=== PATIENT | male | born 1985 | race Caucasian/White ===

== ENCOUNTER 2017-01-13 08:37 | Inpatient (IN) | payer MEDICAID, OTHER ==
[~2017-01-13] VITALS: Ht 180.3 cm; Wt 101.5 kg
[~2017-01-13 08:37] MED LIST: Z.0.NO CURRENT MEDS
[2017-01-13 08:43] VITALS: BP 143/98; PULSE 51; RESP 24; TEMP 97.5; O2SAT 100
[2017-01-13] MEDS ORDERED: ceFAZolin 2 GM PREMIX 50 ML IV ONE (09:00)
[2017-01-13] MEDS ORDERED: HYDROmorphone HCL PF 1 MG/ML VIAL IV PUSH ONE ×2 (09:00→10:15)
[2017-01-13 09:14] LABS: AUTOMATED NEUTROPHIL # 8.8 TH/MM3 (1.8-7.7); BASOPHIL # 0.1 TH/MM3 (0-0.2); BASOPHIL % 0.9 % (0.0-2.0); EOSINOPHIL # 0.1 TH/MM3 (0-0.4); EOSINOPHIL % 0.9 % (0.0-4.0); HEMATOCRIT 41.7 % (39.0-51.0); HEMO FLAGS DIFF FINAL; LYMPH % 24.3 % (9.0-44.0); LYMPHOCYTE # 3.1 TH/MM3 (1.0-4.8); MEAN CELL VOLUME 88.1 FL (80.0-100.0); MEAN CORPUSCULAR HEMOGLOBIN 29.8 PG (27.0-34.0); MEAN CORPUSCULAR HGB CONC 33.8 % (32.0-36.0); MONO % 5.6 % (0.0-8.0); NEUT % 68.3 % (16.0-70.0); PLATELET COUNT 247 TH/MM3 (150-450); RED BLOOD COUNT 4.74 MIL/MM3 (4.50-5.90); RED CELL DISTRIBUTION WIDTH 12.8 % (11.6-17.2); WHITE BLOOD COUNT 12.9 TH/MM3 (4.0-11.0)
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
[2017-01-13 09:24] LABS: PROTHROMBIN TIME - PATIENT 11.3 SEC (9.8-11.6)
[2017-01-13 09:26] LABS: APTT (PATIENT) 22.8 SEC (24.3-30.1)
[2017-01-13] MEDS ORDERED: HYDROmorphone HCL PF 2 MG/ML VIAL IV PUSH ONE (09:30)
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
[2017-01-13 10:39] LABS: ALT (GPT) 25 U/L (12-78); ANION GAP 9 MEQ/L (5-15); AST (GOT) 15 U/L (15-37); BICARBONATE 23.2 MEQ/L (21.0-32.0); BLOOD UREA NITROGEN 18 MG/DL (7-18); CHLORIDE 110 MEQ/L (98-107); GLOMERULAR FILTRATION RATE 94 ML/MIN (>89); SODIUM (NA) 142 MEQ/L (136-145)
[2017-01-13 10:42] LABS: ALKALINE PHOSPHATASE 104 U/L (45-117); TOTAL BILIRUBIN ADULT 0.5 MG/DL (0.2-1.0)
[2017-01-13 10:44] LABS: POTASSIUM 3.9 MEQ/L (3.5-5.1)
[2017-01-13] MEDS ORDERED: IOHEXOL 350 MG/ML 10 ML VIAL (for RAD DIAG) IV ONE (11:26)
[2017-01-13] MEDS ORDERED: ceFAZolin INJ 1,000 MG VIAL IV ONE (11:45)
[2017-01-13] MEDS ORDERED: GENTAMICIN SULFATE 80 MG/2 ML VIAL IV ONE (11:45)
[2017-01-13] MEDS ORDERED: GENTAMICIN SULFATE 80 MG/2 ML VIAL IRRIGATION ONE (11:57)
[2017-01-13] MEDS ORDERED: ONDANSETRON HCL 4 MG/2 ML VIAL IV PUSH ONE (12:00)
[2017-01-13] MEDS ORDERED: PROPOFOL 200 MG/20 ML AMP IV ONE (12:00)
[2017-01-13] MEDS ORDERED: NEOSTIGMINE 3 MG/3 ML SYR IV ONE (12:00)
[2017-01-13] MEDS ORDERED: NORMOSOL R INJ 1,000 ML IV ONE (12:00)
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
[2017-01-13] MEDS ORDERED: SODIUM CHLORIDE 0.9% FLUSH 5 ML FLUSH IVF PRN (12:30)
[2017-01-13] MEDS ORDERED: ONDANSETRON HCL 4 MG/2 ML VIAL IVP PRN (12:30)
[2017-01-13] MEDS ORDERED: diphenhydrAMINE HCL 25 MG CAP PO PRN (12:30)
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
[2017-01-13] MEDS ORDERED: NALOXONE HCL 0.4 MG/ML AMP IV PRN (13:00)
[2017-01-13] MEDS ORDERED: SODIUM CHLORIDE 0.9% FLUSH 5 ML FLUSH FLUSH PRN (13:00)
[2017-01-13] MEDS ORDERED: DO NOT ADM ANY ANTICOAGULANT DRUGS XX PRN (13:01)
[2017-01-13] MEDS ORDERED: Post-op Orders (for Pharmacy) MISC XX ONE (13:01)
[2017-01-13] MEDS ORDERED: *MEPERIDINE 25 MG INJ VIAL PERIprocedural Use ONLY ONE ×2 (13:02→13:08)
[2017-01-13] MEDS ORDERED: *HYDROmorphone PF 1 MG VIAL PERIprocedural Use ONLY ONE ×4 (13:08→13:47)
[2017-01-13] MEDS ORDERED: MIDAZOLAM HCL 2 MG/2 ML VIAL ONE (13:13)
[2017-01-13] MEDS ORDERED: fentaNYL CITRATE 250 MCG/5 ML AMP ONE (13:13)
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
[2017-01-13] MEDS: KETOROLAC TROMETHAMINE 30 MG/ML (IVP) VIAL IVP SCH ×2 (13:21→21:13)
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
[2017-01-13] MEDS: LACTATED RINGER'S 1000 ML INJ 1,000 ML IV SCH (13:30)
[2017-01-13] MEDS ORDERED: *ENALAPRILAT 1.25 MG/ML VIAL PERIprocedural Use ONLY ONE (13:35)
[2017-01-13] MEDS: ACETAMINOPHEN/HYDROcodone 325 MG/10 MG TAB PO PRN ×2 (16:29→19:46)
[2017-01-13] MEDS: ceFAZolin 2 GM PREMIX 50 ML IV SCH (17:04)
[2017-01-13] MEDS: MORPHINE SULFATE 4 MG/ML INJ IV PUSH PRN ×2 (17:24→21:12)
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
[2017-01-13] MEDS ORDERED: DOCUSATE SODIUM 50 MG/SENNA 8.6 MG TAB PO PRN (18:30)
[2017-01-13] MEDS: GENTAMICIN 80 MG PREMIX 100 ML IV SCH (19:46)
[2017-01-13] MEDS: DOCUSATE SODIUM 50 MG/SENNA 8.6 MG TAB PO SCH (19:47)
[2017-01-13 20:00] VITALS: BP 129/70; PULSE 62; RESP 16; TEMP 98.4; O2SAT 100
[2017-01-13] MEDS: SODIUM CHLORIDE 0.9% FLUSH 5 ML FLUSH IVF SCH (21:00)
[2017-01-13] MEDS: SODIUM CHLORIDE 0.9% FLUSH 5 ML FLUSH FLUSH SCH (21:13)
[2017-01-14] VITALS (8 sets, daily range): BP systolic 121–151; BP diastolic 63–79; PULSE 53–88; RESP 16–18; TEMP 97.8–99.1; O2SAT 96–100
[2017-01-14] MEDS: ceFAZolin 2 GM PREMIX 50 ML IV SCH ×4 (01:37→23:53)
[2017-01-14] MEDS: ACETAMINOPHEN/HYDROcodone 325 MG/10 MG TAB PO PRN ×7 (01:37→23:53)
[2017-01-14] MEDS: LACTATED RINGER'S 1000 ML INJ 1,000 ML IV SCH ×2 (01:38→13:21)
[2017-01-14] MEDS: MORPHINE SULFATE 4 MG/ML INJ IV PUSH PRN ×6 (03:18→22:20)
[2017-01-14] MEDS: GENTAMICIN 80 MG PREMIX 100 ML IV SCH ×3 (03:19→20:43)
[2017-01-14 05:15] LABS: HEMATOCRIT 34.9 % (39.0-51.0); REVIEW FLAG FINAL
[2017-01-14] MEDS: KETOROLAC TROMETHAMINE 30 MG/ML (IVP) VIAL IVP SCH ×2 (05:24→13:21)
[2017-01-14] MEDS ORDERED: HYDR-3366 PO (07:02)
[2017-01-14] MEDS ORDERED: WALKER/ADULT/FO1 MIS (07:02)
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
[2017-01-14] MEDS: SODIUM CHLORIDE 0.9% FLUSH 5 ML FLUSH IVF SCH ×2 (09:00→20:44)
[2017-01-14] MEDS: DOCUSATE SODIUM 50 MG/SENNA 8.6 MG TAB PO SCH ×2 (09:07→20:44)
[2017-01-14] MEDS: POLYETHYLENE GLYCOL 17 GM PKG PO SCH (09:08)
[2017-01-14] MEDS: SODIUM CHLORIDE 0.9% FLUSH 5 ML FLUSH FLUSH SCH ×2 (09:08→20:44)
[2017-01-14] MEDS: ENOXAPARIN SODIUM 30 MG/0.3 ML SYRINGE SQ SCH ×3 (12:00→22:30)
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
[2017-01-15] MEDS: MORPHINE SULFATE 4 MG/ML INJ IV PUSH PRN ×3 (01:52→07:50)
[2017-01-15] MEDS: ACETAMINOPHEN/HYDROcodone 325 MG/10 MG TAB PO PRN (03:46)
[2017-01-15] MEDS: GENTAMICIN 80 MG PREMIX 100 ML IV SCH (03:48)
[2017-01-15 04:00] VITALS: BP 150/84; PULSE 67; RESP 16; TEMP 98.4; O2SAT 100
[2017-01-15] MEDS ORDERED: ACETAMINOPHEN/HYDROcodone 325 MG/10 MG TAB PO ONE (04:15)
[2017-01-15 07:52] LABS: BICARBONATE 27.1 MEQ/L (21.0-32.0)
[2017-01-15 08:00] VITALS: BP 121/77; PULSE 56; RESP 18; TEMP 97.6; O2SAT 100
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
[2017-01-15] MEDS: SODIUM CHLORIDE 0.9% FLUSH 5 ML FLUSH IVF SCH (09:00)
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
[2017-01-15] MEDS: DOCUSATE SODIUM 50 MG/SENNA 8.6 MG TAB PO SCH (10:26)
[2017-01-15] MEDS: ceFAZolin 2 GM PREMIX 50 ML IV SCH (10:27)
[2017-01-15] MEDS: SODIUM CHLORIDE 0.9% FLUSH 5 ML FLUSH FLUSH SCH (10:28)
[2017-01-15] MEDS: POLYETHYLENE GLYCOL 17 GM PKG PO SCH (10:28)
[2017-01-15] MEDS ORDERED: ACETAMINOPHEN/HYDROcodone 325 MG/10 MG TAB PO PRN (13:30)
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
[2017-03-15] MEDS ORDERED: HYDR-3288 PO (07:46)
[2017-03-15] MEDS ORDERED: CRUTMIS25 (08:38)
== END 2017-01-15 13:04 | disposition left against medical advice (07) | DRG 494 ==
LOC: NEPE 08:37 → NEDA 11:00 → N06B 14:24
PROVIDERS: ADMIT Hospitalist; ATTEND Hospitalist
PROC: 0QSH04Z Reposition Left Tibia with Internal Fixation Device, Open Approach (ICD-10-PCS; 2017-01-13)
PROC: 0S9G0ZZ Drainage of Left Ankle Joint, Open Approach (ICD-10-PCS; principal; 2017-01-13 11:37)
DX: S82.872B Displaced pilon fracture of left tibia, initial encounter for open fracture type I or II (principal); I10 Essential (primary) hypertension; X95.9XXA Assault by unspecified firearm discharge, initial encounter; Y93.89 Activity, other specified; Y92.89 Other specified places as the place of occurrence of the external cause; F17.210 Nicotine dependence, cigarettes, uncomplicated; F90.9 Attention-deficit hyperactivity disorder, unspecified type; G89.29 Other chronic pain; M54.9 Dorsalgia, unspecified
CPT/HCPCS: 73590; 73600; 73610; 73630; 73700; 75635; 76000; 80048; 80053; 85014; 85018; 85025; 85610; 85730; 86850; 86900; 86901; 94150; 96365; 96374; 96375; C1713; E0113; J0690; J1170; J1580; J1650; J1885; J2175; J2250; J2270; J2405; J2710; J3010; J7120; Q9967

== ENCOUNTER 2017-01-28 18:06 | Emergency (ER) | payer MEDICAID ==
[~2017-01-28] VITALS: Ht 180.3 cm; Wt 100.0 kg
[~2017-01-28 18:06] MED LIST changes: +HYDR-3366 PO; +WALKER/ADULT/FO1 MIS; -Z.0.NO CURRENT MEDS
[2017-01-28 18:08] VITALS: BP 159/92; PULSE 96; RESP 24; TEMP 97; O2SAT 98
[2017-01-28] MEDS ORDERED: KETOROLAC TROMETHAMINE 30 MG/ML (IVP) VIAL IV PUSH ONE (22:30)
[2017-01-28] MEDS ORDERED: KETOROLAC TROMETHAMINE 60 MG/2 ML (IM) VIAL IM ONE (22:30)
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
[2017-01-28 22:57] LABS: AUTOMATED NEUTROPHIL # 4.1 TH/MM3 (1.8-7.7); BASOPHIL # 0.1 TH/MM3 (0-0.2); BASOPHIL % 1.3 % (0.0-2.0); EOSINOPHIL # 0.2 TH/MM3 (0-0.4); EOSINOPHIL % 3.1 % (0.0-4.0); HEMATOCRIT 30.5 % (39.0-51.0); HEMO FLAGS DIFF FINAL; LYMPH % 35.1 % (9.0-44.0); LYMPHOCYTE # 2.7 TH/MM3 (1.0-4.8); MEAN CELL VOLUME 87.2 FL (80.0-100.0); MEAN CORPUSCULAR HEMOGLOBIN 30.7 PG (27.0-34.0); MEAN CORPUSCULAR HGB CONC 35.2 % (32.0-36.0); MONO % 6.7 % (0.0-8.0); NEUT % 53.8 % (16.0-70.0); PLATELET COUNT 312 TH/MM3 (150-450); RED CELL DISTRIBUTION WIDTH 13.6 % (11.6-17.2); WHITE BLOOD COUNT 7.7 TH/MM3 (4.0-11.0)
[2017-01-28 23:10] LABS: BICARBONATE 27.6 MEQ/L (21.0-32.0); POTASSIUM 4.1 MEQ/L (3.5-5.1)
[2017-01-28] MEDS ORDERED: oxyCODONE/ACETAMINOPHEN 5 MG/325 MG TAB PO ONE (23:30)
[2017-01-29] MEDS ORDERED: IBUP-232 PO (01:39)
[2017-03-15] MEDS ORDERED: HYDR-3288 PO (07:46)
[2017-03-15] MEDS ORDERED: CRUTMIS25 (08:38)
== END 2017-01-29 02:01 | disposition home or self-care (01) ==
LOC: NEPE 18:06
DX: S82.872D Displaced pilon fracture of left tibia, subsequent encounter for closed fracture with routine healing (principal); Z48.01 Encounter for change or removal of surgical wound dressing; S82.2 Fracture of shaft of tibia; X58.XXXD Exposure to other specified factors, subsequent encounter; I10 Essential (primary) hypertension; F17.210 Nicotine dependence, cigarettes, uncomplicated
CPT/HCPCS: 80048; 85025; 96372; 99283; J1885

== ENCOUNTER → 2017-03-15 | Day surgery (SDC) | payer SELFPAY ==
[~2017-03-15] VITALS: Ht 180.3 cm; Wt 95.5 kg
[~2017-03-15] MED LIST changes: +*morphine SULFATE 8 MG/ML PERIprocedure ONLY ONE; +ACETAMINOPHEN 1000 MG/100 ML VIAL IV ONE; +ACETAMINOPHEN/HYDROcodone 325 MG/7.5 MG TAB PO PRN; +CHLORHEXIDINE GLUCONATE 2 % 1 PACK (2 CLOTHS) TOPICAL PRN; +CHLORHEXIDINE GLUCONATE 4% SOLN 120 ML BTL TOPICAL SCH; +CRUTMIS25; +DEXAMETHASONE SOD PHOS 4 MG/ML VIAL ONE; +FAMOTIDINE 20 MG/2 ML VIAL ONE; +HYDR-3288 PO; -HYDR-3366 PO; +IBUP-232 PO; +INSULIN HUMAN REGULAR 1,000 UNITS/10 ML VIAL SQ PRN; +LACTATED RINGER'S 1000 ML IV PRN; +METOPROLOL TARTRATE 25 MG TAB PO PRN; +MIDAZOLAM HCL 2 MG/2 ML VIAL ONE; +MORPHINE SULFATE 4 MG/ML INJ IV PUSH PRN; +ONDANSETRON HCL 4 MG/2 ML VIAL IV PUSH ONE; +ONDANSETRON HCL 4 MG/2 ML VIAL IVP PRN; +POVIDONE IODINE 5% (ANTISEPSIS KIT) 4 APPLICATIONS EACH NARE PRN; +PROPOFOL 200 MG/20 ML AMP IV ONE; +Post-op Orders (for Pharmacy) MISC XX ONE; +SODIUM CHLORID 0.9% 500 ML IV PRN; +VANCOMYCIN 1000 MG/NS 250 ML (for <70 kg) IV SCH; -WALKER/ADULT/FO1 MIS; +ceFAZolin 2 GM PREMIX 50 ML IV SCH; +fentaNYL CITRATE 250 MCG/5 ML AMP ONE
[2017-03-15 05:48] VITALS: BP 138/81; PULSE 69; RESP 20; TEMP 98.5; O2SAT 98
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
[2017-03-15 09:43] VITALS: BP 133/65; PULSE 73; TEMP 97.5; O2SAT 99
[2017-03-15 09:55] VITALS: RESP 20
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
== END | disposition home or self-care (01) ==
LOC: HSDC 05:14
PROVIDERS: ATTEND Orthopaedic Surgery Orthopaedic Trauma
DX: S82.302D Unspecified fracture of lower end of left tibia, subsequent encounter for closed fracture with routine healing (principal); F17.200 Nicotine dependence, unspecified, uncomplicated; W34.00XD Accidental discharge from unspecified firearms or gun, subsequent encounter
CPT/HCPCS: 20694; 27860; 73600; 76000; 97163; E0113; G8987; G8988; J1100; J2250; J2270; J2405; J3010; J3370; J7050; J7120; J0131